=== PATIENT | male | born 1950 | race Caucasian/White ===

== ENCOUNTER → 2017-08-06 | Day surgery (SDC) | payer MEDICARE, OTHER ==
[2017-08-05 11:04] LABS: BASOPHILS # (AUTO) 0.1 (0.0-0.1); BASOPHILS % 0.9 % (0.0-1.0); EOSINOPHILS # (AUTO) 1.3 (0.0-0.4); EOSINOPHILS % 15.5 % (0.0-6.0); HEMATOCRIT 37.9 % (38.2-49.6); HEMOGLOBIN 12.5 g/dL (14.0-18.0); LYMPHOCYTES # (AUTO) 2.1 (1.0-3.2); LYMPHOCYTES % 24.6 % (18.0-39.1); MEAN CORPUSCULAR HEMOGLOBIN 31.5 pg (28-32); MEAN CORPUSCULAR VOLUME 95.5 fL (81-99); MONOCYTES # (AUTO) 1.2 (0.2-0.8); MONOCYTES % 14.1 % (4.4-11.3); NEUTROPHILS # (AUTO) 3.8 (2.1-6.9); NEUTROPHILS % 44.2 % (38.7-80.0); PLATELET COUNT 248 x10e3/uL (140-360); RED BLOOD COUNT 3.97 x10e6/uL (4.3-5.7); RED CELL DISTRIBUTION WIDTH 12.1 % (11.7-14.4)
[2017-08-05 11:19] LABS: INR 0.95; PROTHROMBIN TIME 11.9 seconds (11.9-14.5)
[2017-08-05 11:28] LABS: ALANINE AMINOTRANSFERASE 13 IU/L (0-55); ALBUMIN 3.6 g/dL (3.5-5.0); ALBUMIN/GLOBULIN RATIO 0.9 (0.8-2.0); ALKALINE PHOSPHATASE 51 IU/L (40-150); ANION GAP 12.8 mmol/L (8-16); BLOOD UREA NITROGEN 24 mg/dL (7-26); BUN/CREATININE RATIO 24 (6-25); CARBON DIOXIDE 27 mmol/L (22-29); CHLORIDE 106 mmol/L (98-107); EST GLOMERULAR FILTRATION RATE > 60 ML/MIN (60-); GLUCOSE 105 mg/dL (74-118); POTASSIUM 4.8 mmol/L (3.5-5.1); SODIUM 141 mmol/L (136-145)
[~2017-08-06] VITALS: Ht 177.8 cm; Wt 85.3 kg
[~2017-08-06] MED LIST: ASPIR 8181 MG PO; BENZOCAINE 20% SPR 60 ML CAN ONE; BUSPIRONE HCL5 MG PO; BYSTOLIC10 MG PO; CELEBREX200 MG PO; FAMOTIDINE20 MG PO; FENTANYL CITRATE/PF 100MCG/2 ML INJ ONE; FINASTERIDE5 MG PO; LEVOTHYROXINE25 MCG PO; LIDOCAINE HCL 2% LOCAL INJ 5 ML SDV VIAL INJ ONE; MELOXICAM7.5 MG PO; MIDAZOLAM HCL 2 MG/2 ML VIAL ONE; NORCO 10-325 T1 EACH PO; NORVASC10 MG PO; PROPOFOL IV EMULSION 10 MG/ML 20 ML VIAL ONE; RESTORIL15 MG PO; ROPINIROLE HC0.25 MG PO; SODIUM CHLORIDE 0.9% 500ML 500 ML ONE; TESTOSTERO100 MG/1 M IM/IV/SC; VIT B12 INJECTION IM; VITAMIN D31000 UNI1 PO
--- OUTSIDE RECORDS SUMMARY | 2017-08-06 12:49 | XMS REPORT | Clinical Summary ---
Author Author [facility] Organization [facility] Address Unknown Phone Unavailable Care Team Providers Care Supervisor Steno Pool Name Role Phone Swapnil Beavers MD PCP Allergies Active Allergy Reactions Severity Noted Date Comments Sulfamethoxazole-Trimetho 06/14/2017 prim Ciprofloxacin 06/14/2017 Atorvastatin 06/14/2017 Simvastatin 06/14/2017 Current Medications Prescription Sig. Disp. Refills Start End Date Status Date finasteride (PROSCAR) 5 Take 5 mg by mouth daily. Active mg tablet levothyroxine (SYNTHROID, Take 25 mcg by mouth Active LEVOXYL) 25 mcg tablet every morning. amLODIPine (NORVASC) 10 Take 10 mg by mouth Active mg tablet daily. temazepam (RESTORIL) 30 Take 30 mg by mouth Active mg capsule nightly as needed for sleep. HYDROcodone-acetaminophen Take 1 tablet by mouth Active (NORCO) 10-325 mg per every 6 (six) hours as tablet needed for moderate pain. nebivolol (BYSTOLIC) 10 Take 10 mg by mouth Active MG tablet daily. CHOLECALCIFEROL, VITAMIN Take 1 tablet by mouth Active D3, (VITAMIN D3 ORAL) every morning. CYANOCOBALAMIN, VITAMIN Inject as directed every Active B-12, INJ 30 (thirty) days. celecoxib (CeleBREX) 200 Take 200 mg by mouth 06/17/19 Discontin MG capsule daily. 18 ued aspirin 81 mg chewable Chew 1 tablet (81 mg 30 tablet 0 06/17/1901/25 tablet total) daily for 30 days. 18 18 famotidine (PEPCID) 20 MG Take 1 tablet (20 mg 30 tablet 0 06/17/19 07/17/19 tablet total) by mouth daily for 18 18 30 days. pravastatin (PRAVACHOL) Take 1 tablet (20 mg 30 tablet 0 06/17/19 20 MG tablet total) by mouth nightly 18 18 for 30 days. Active Problems Problem Noted Date Left hand weakness 06/14/2017 Encounters Date Type Specialty Care Team Description 06/20/2017 Emergency Emergency Medicine Pooja Silver MD Paresthesia of left arm (Primary Dx) 06/16/2017 Patient Quality Brie Aviles Outreach 06/14/2017 [facility] General Surgery Clemencia Morrow MD Left hand weakness - Encounter Lisa Choe MD (Primary Dx); 06/16/2017 Acute CVA (cerebrovascular accident) 06/14/2017 Procedure Pass General Surgery after 08/05/2016 Social History Tobacco Use Types Packs/Day Years Used Date Never Smoker Smokeless Tobacco: Never Used Alcohol Use Drinks/Week oz/Week Comments Yes occasionally Sex Assigned at Date Recorded Not on file Last Filed Vital Signs Vital Sign Reading Time Taken Blood Pressure 165/78 06/20/2017 9:32 AM CDT Pulse 72 06/20/2017 9:32 AM CDT Temperature 36.6 C (97.8 F) 06/20/2017 8:22 AM CDT Respiratory Rate 15 06/20/2017 9:32 AM CDT Oxygen Saturation 99% 06/20/2017 9:32 AM CDT Inhaled Oxygen - - Concentration Weight 85.7 kg (189 lb) 06/20/2017 8:22 AM CDT Height 177.8 cm (5' 10") 06/20/2017 8:22 AM CDT Body Mass Index 27.12 06/20/2017 8:22 AM CDT Plan of Treatment Health Maintenance Due Date Last Done Comments COLONOSCOPY 2000 SHINGRIX VACCINE (#1) 2000 ZOSTER VACCINE 2010 PNEUMOCOCCAL 07/27/2015 POLYSACCHARIDE VACCINE AGE 65 AND OVER PNEUMOCOCCAL-13 07/27/2015 INFLUENZA VACCINE 11/06/2017 Procedures Procedure Name Priority Date/Time Associated Diagnosis Comments ECHOCARDIOGRAM WITH Routine 06/15/2017 Results for this AGITATED SALINE (72374) 2:35 PM FUR CUTTER procedure are in the results section. PA CRITICAL CARE, E/M Routine 06/14/2017 Results for this 30-74 MINUTES 6:43 PM FUR CUTTER procedure are in the results section. after 08/05/2016 Results * CT Head Wo Contrast (06/20/2017 8:55 AM) Specimen Performing Laboratory [facility] [address] [place] [address] Narrative EXAMINATION:CT HEAD WO CONTRAST CT IMAGING WAS PERFORMED WITH ITERATIVE RECONSTRUCTION TECHNIQUE AND/OR AUTOMATED EXPOSURE CONTROL TO REDUCE RADIATION DOSE. CLINICAL HISTORY:left arm soreness COMPARISON:MRI brain June 14, 2017. FINDINGS: 1.Small focus of recent cortical ischemia in the precentral gyrus on the right is present although difficult to appreciate on the CT. There is no hemorrhage or mass effect. 2.There are otherwise mild nonspecific cerebral white matter microvascular changes. There is mild to moderate cerebral cortical volume loss and mild cerebellar volume loss. There is a small chronic cortical insult in the posterior superior occipital lobe.. 3. There is minimal basal ganglia calcification. Atherosclerotic calcifications noted in the distal internal carotid arteries. 4.There is minimal mucosal thickening in the ethmoid and maxillary sinuses. IMPRESSION: No significant change since June 14, 2017. [facility]-[id number] Procedure Note Hm Interface, Radiology Results Incoming - 06/20/2017 9:15 AM CDT EXAMINATION: CT HEAD WO CONTRAST CT IMAGING WAS PERFORMED WITH ITERATIVE RECONSTRUCTION TECHNIQUE AND/OR AUTOMATED EXPOSURE CONTROL TO REDUCE RADIATION DOSE. CLINICAL HISTORY: left arm soreness COMPARISON: MRI brain June 14, 2017. FINDINGS: 1. Small focus of recent cortical ischemia in the precentral gyrus on the right is present although difficult to appreciate on the CT. There is no hemorrhage or mass effect. 2. There are otherwise mild nonspecific cerebral white matter microvascular changes. There is mild to moderate cerebral cortical volume loss and mild cerebellar volume loss. There is a small chronic cortical insult in the posterior superior occipital lobe.. 3. There is minimal basal ganglia calcification. Atherosclerotic calcifications noted in the distal internal carotid arteries. 4. There is minimal mucosal thickening in the ethmoid and maxillary sinuses. IMPRESSION: No significant change since June 14, 2017. [facility]-[id number] * Estimated GFR (06/20/2017 8:38 AM) Only the most recent of 2 results within the time period is included. Component Value Ref Range GFR Non Af Amer 84 mL/min/1.73 m2 GFR Af Amer >90 mL/min/1.73 m2 Comment: Chronic kidney disease: <60 mL/min/1.73m2 Kidney failure: <15 mL/min/1.73m2 The estimated GFR is calculated from the IDMS-traceable Modification of Diet in Renal Disease Equation. The accuracy of the calculation is poor when the creatinine is normal. Calculated values >90 mL/min/1.73m2 are not reported. This equation has not been validated in children (<18 years), women, the elderly (>70 years), or ethnic groups other than Caucasians and Americans. Specimen Performing Laboratory Plasma specimen [facility] DEPARTMENT OF PATHOLOGY AND [facility]IC[facility] [address] [place] [address] [place] [address] * Troponin (06/20/2017 8:38 AM) Only the most recent of 2 results within the time period is included. Component Value Ref Range Troponin <0.300 0.000 - 0.300 ng/mL Comment: 0.30 - 1.49 ng/ml May indicate increased risk of acute coronary syndrome. >=1.5 ng/ml Consistent with acute myocardial infarction. The diagnostic value of a single normal or non-diagnostic result is questionable. Serial samples at 2-6 hour intervals are required to rule out acute myocardial injury. Specimen Performing Laboratory Plasma specimen [facility] OF PATHOLOGY AND [place] [address] [place] [address] * CBC with platelet and differential (06/20/2017 8:38 AM) Only the most recent of 2 results within the time period is included. Component Value Ref Range WBC 7.96 4.50 - 11.00 k/uL RBC 4.27 (L) 4.40 - 6.00 m/uL HGB 13.5 (L) 14.0 - 18.0 g/dL HCT 41.1 41.0 - 51.0 % MCV 96.3 82.0 - 100.0 fL MCH 31.6 27.0 - 34.0 pg MCHC 32.8 31.0 - 37.0 g/dL RDW - SD 45.2 37.0 - 55.0 fL MPV 9.9 8.8 - 13.2 fL Platelet count 242 150 - 400 k/uL Nucleated RBC 0.00 /100 WBC Neutrophils 59.0 39.0 - 69.0 % Lymphocytes 22.0 (L) 25.0 - 45.0 % Monocytes 15.1 (H) 0.0 - 10.0 % Eosinophils 2.4 0.0 - 5.0 % Basophils 0.9 0.0 - 1.0 % Immature granulocytes 0.6Comment: "Immature granulocytes" 0.0 - 1.0 % (promyelocytes, myelocytes, metamyelocytes) Specimen Performing Laboratory Blood [facility] DEPARTMENT OF PATHOLOGY AND GENOMIC MEDICINE [address] [place] [address] * Creatine kinase, total (CPK) (06/20/2017 8:38 AM) Component Value Ref Range Creatine kinase 84 39 - 308 U/L Specimen Performing Laboratory Plasma specimen [facility] DEPARTMENT OF PATHOLOGY AND GENOMIC MEDICINE [address] [place] [address] * Comprehensive metabolic panel (06/20/2017 8:38 AM) Only the most recent of 2 results within the time period is included. Component Value Ref Range Sodium 138 135 - 148 mEq/L Potassium 3.7 3.5 - 5.0 mEq/L Chloride 100 98 - 112 mEq/L CO2 27 24 - 31 mEq/L Anion gap 11 7 - 15 mEq/L Comment: Starting from July , anion gap calculation no longer incorporates potassium. Please note the change. BUN 18 8 - 23 mg/dL Creatinine 0.9 0.7 - 1.2 mg/dL Glucose 119 (H) 65 - 99 mg/dL Calcium 9.4 8.8 - 10.2 mg/dL Protein 7.5 6.3 - 8.3 g/dL Comment: [place] 4.6-7.0 g/dL 1 week 4.4-7.6 g/dL 7 months-1year 5.1-7.3 g/dL 1-2 years 5.6-7.5 g/dL >3 years 6.0-8.0 g/dL 18-150 6.3-8.3 g/dL Albumin 4.1 3.5 - 5.0 g/dL A/G ratio 1.2 0.7 - 3.8 Alkaline phosphatase 44 40 - 129 U/L AST 19 10 - 50 U/L ALT 16 5 - 50 U/L Total bilirubin 0.4 0.0 - 1.2 mg/dL Specimen Performing Laboratory Plasma specimen [facility] DEPARTMENT PATHOLOGY AND [facility] MEDICINE [address] [place] [address] * ECG 12 lead (06/20/2017 8:29 AM) Only the most recent of 2 results within the time period is included. Component Value Ref Range Ventricular rate 70 Atrial rate 70 PA interval 144 QRSD interval 82 QT interval 416 QTC interval 449 P axis 1 51 QRS axis 1 23 T wave axis 51 EKG impression Normal sinus rhythm-Normal ECG-In automated comparison with ECG of 14-JUN-2017 19:12,-No significant change was found- Specimen Performing Laboratory [facility] [place] [address] [place] [address] * ECG ED Preliminary Interpretation - NOT AN ORDER (06/20/2017 8:21 AM) Delia Tucker MD 06/20/20179:24 AM ECG ED Preliminary Interpretation - Not an Order Performed by: POOJA SILVER Authorized by: POOJA SILVER ECG reviewed by ED Physician in the absence of a chainstitch binder: yes Interpretation: Interpretation: normal Rate: ECG rate:70 ECG rate assessment: normal Rhythm: Rhythm: sinus rhythm Ectopy: Ectopy: none QRS: QRS axis:Normal Conduction: Conduction: normal ST segments: ST segments:Normal T waves: T waves: normal * Thyroid stimulating hormone (06/16/2017 5:11 AM) Component Value Ref Range TSH 2.13 0.27 - 4.20 uIU/mL Specimen Performing Laboratory Plasma specimen [facility] DEPARTMENT OF PATHOLOGY AND GENOMIC MEDICINE [address] [place] [address] * Echocardiogram complete w contrast and 3D if needed (06/15/2017 2:35 PM) Component Value Ref Range AoV Area, Vmax 2.10 cm2 AoV Area, VTI 2.24 cm2 AoV Mean PG 5.68 mmHg AoV Peak PG 10.61 mmHg AoV Vmax 1.63 m/s AoV VTI 0.33 m IVS,d 0.95 0.6 - 1.2 cm LV,d 4.20 cm LV EF,A2C 67.21 % LV EF,A4C 57.30 % LV EF,BP 62.94 % Baldo Clinton,d A2C 8.47 cm Baldo Clinton,d A4C 8.33 cm Baldo Clinton,s A2C 6.92 cm Baldo Clinton,s A4C 7.04 cm LV,s 2.96 cm LV SV,A2C 75.65 % LV SV,A4C 65.46 % LV Vol,d A2C 112.56 mL LV Vol,d A4C 114.24 ml LV Vol,d BP 114.27 ml LV Vol,s A2C 36.91 mL LV Vol,s A4C 48.78 ml LV Vol,s BP 42.34 nl LVOT Diam,S 2.04 cm LVOT Vmax 1.05 m/s LVOT VTI 0.22 m LVPWD,d 1.13 cm TR Vpeak 2.62 mm/s MV E A ratio 1.28 mmHg TR pk grad 27.56 mmHg MR Vmax 5.47 m/s MR peak grad 119.54 mmHg E wave decelartion time 212.42 msec MV Peak A Raheem 0.94 m/s MV valve area p 1/2 3.21 cm2 method MV Peak E Raheem 1.20 m/s MV stenosis pressure 1/2 68.55 ms time AV LVOT peak gradient 4.41 mmHg LV SYS VOL 33.82 ml LV AMARAL VOL 78.67 ml LV SV Teich 2D 44.85 ml LVOT SI 36.18 ml/m2 AoV Cusp sep 1.64 AoV Vmn 1.14 IVS s 2D 1.35 LA Ao Ratio Mmode 1.20 LVOT Vmn 0.73 Pt Size 177.80 Pt Wt 83.91 PV AT 138.41 msec LVOT mean grad 2.30 mmHg LVPW s PLAX 1.41 cm MV Decel slope 5.63 m/s2 Velocity Ratio (V1/V2) 0.64 m/s EF 57.01 % E/A ratio 1.28 LVOT area 3.27 cm2 LA volume 60.0 cm3 LA Area d A4C 58 cm2 RA pressure 5.00 mmHg RVSP 32.56 mmHg LA diam s 4.20 cm Aortic Root 3.50 cm D E excurs 1.90 E f slope 0.07 E prime lat 0.14 E tere sept 0.06 PV acc T slope 4.90 Specimen Performing Laboratory [facility] [address] [place] [address] Narrative The left ventricle chamber size is normal. There is borderline left ventricular Left Ventricular ejection fraction is 55 - 60%. Right ventricular size is normal. No pericardial effusion LA size is normal. No PFO by saline contrast study * Homocystine, plasma (06/15/2017 11:25 AM) Component Value Ref Range Homocysteine 12.7 0.0 - 15.0 umol/L Comment: The risk for coronary vascular disease increases progressively with homocysteine concentration. A 3.4 times greater risk is associated with a homocysteine concentration of greater than 15.8 umol/L as compared to a concentration below 14.1 umol/L. Specimen Performing Laboratory Plasma specimen [facility] DEPARTMENT OF PATHOLOGY AND GENOMIC MEDICINE [address] [facility] [place] [place] [address] * Vitamin B12 level (06/15/2017 11:25 AM) Component Value Ref Range Vitamin B12 516 211 - 946 pg/mL Comment: Significant overlap exists between normal and deficiency states. However, most patients with deficiencies will have Serum B12 <200 pg/mL. Specimen Performing Laboratory Serum [facility] PATHOLOGY AND GENOMIC MEDICINE [address] [place] [address] * Lipid panel (06/15/2017 11:25 AM) Only the most recent of 2 results within the time period is included. Component Value Ref Range Cholesterol 228 (H) <200 mg/dL Triglycerides 138 <150 mg/dL HDL cholesterol 55 >40 mg/dL LDL cholesterol 171 (H)Comment: Result obtained by direct LDL <100 mg/dL measurement Lipid panel SeeBelow interpretation Comment: Total Cholesterol (mg/dL) <200 Desirable 200-239 Borderline-high >=240 High Triglycerides (mg/dL) <150 Normal 150-199 Borderline-high 200-499 High >=500 Very high HDL Cholesterol (mg/dL) <40 Low (male) <40 Low (female) LDL Cholesterol (mg/dL) <100 Optimal 100-129 Near or above optimal 130-159 Borderline-high 160-189 High >=190 Very high Risk Catergories that modify LDL goals. Risk Catergories LDL goal (mg/dL) CHD and CHD risk equivalent <100 (10-year risk >20%) Multiple (2+) risk factors <130 (10-year risk=<20%) 0-1 risk factors <160 (<10-year risk) Defining levels of lipids in metabolic syndrome Triglycerides >=150 mg/dL HDL Cholesterol Men <40 mg/dL Women <40 mg/dL Non-HDL cholesterol is a second target for therapy in persons with high triglycerides (>=200 mg/dL) Specimen Performing Laboratory Plasma specimen [facility] DEPARTMENT OF PATHOLOGY AND GENOMIC MEDICINE [address] [place] [address] * Serum electrophoresis (06/15/2017 10:25 AM) Component Value Ref Range Protein 6.4 6.3 - 8.3 g/dL Comment: [place] 4.6-7.0 g/dL 1 week 4.4-7.6 g/dL 7 months-1year 5.1-7.3 g/dL 1-2 years 5.6-7.5 g/dL >3 years 6.0-8.0 g/dL 18-150 6.3-8.3 g/dL SPE albumin 4.40 4.00 - 5.30 g/dL SPE alpha 1 0.13 0.10 - 0.25 g/dL SPE alpha 2 0.70 0.58 - 0.84 g/dL SPE beta 0.77 0.50 - 1.10 g/dL SPE gamma 0.40 (L) 0.60 - 1.30 g/dL SPE extended See CommentComment: Gamma globulins are slightly interpretation decreased. SPE interpretation See CommentComment: Jose Macias, PhD; Haroldo Dow, PhD; Joaquin Maxwell MD, PhD Specimen Performing Laboratory Serum [facility] DEPARTMENT OF PATHOLOGY AND GENOMIC MEDICINE [address] [place] [address] * MRI Brain Wo Contrast (06/14/2017 10:33 PM) Specimen Performing Laboratory [address] [address] Narrative EXAMINATION: MRI BRAIN WO CONTRAST CLINICAL HISTORY: STROKE COMPARISON:CT head same date TECHNIQUE: Multiplanar and multisequence MRI imaging of the brain was obtained without contrast. FINDINGS: Small areas of cortical restricted diffusion involving the right precentral gyrus. Focal area of gliosis with hemosiderin deposition involving the right parasagittal parietal occipital region. Increased signal on DWI trace images is suspected to be related to susceptibility artifact. Scattered subcortical and periventricular white matter T2 FLAIR hyperintensities likely reflecting mild chronic bibasilar ischemic changes. Major intracranial vascular flow voids appear preserved. The ventricles are normal in size and configuration for age with evidence of mild to moderate global cerebral volume loss. Orbits are normal in appearance. Visualized paranasal sinuses and mastoid air cells are clear. IMPRESSION: 1. Small areas of recent ischemia involving the right precentral gyrus. No evidence of mass effect or acute hemorrhage. 2. Suspected small chronic hemorrhagic insult involving the right parasagittal parietal occipital region. Findings were discussed with and acknowledged by YUKO Barrera at 06/14/2017 11:00 PM. [id number] Procedure Note Interface, Radiology Results Incoming - 06/14/2017 11:06 PM FUR CUTTER EXAMINATION: MRI BRAIN WO CONTRAST CLINICAL HISTORY: STROKE COMPARISON: CT head same date TECHNIQUE: Multiplanar and multisequence MRI imaging of the brain was obtained without contrast. FINDINGS: Small areas of cortical restricted diffusion involving the right precentral gyrus. Focal area of gliosis with hemosiderin deposition involving the right parasagittal parietal occipital region. Increased signal on DWI trace images is suspected to be related to susceptibility artifact. Scattered subcortical and periventricular white matter T2 FLAIR hyperintensities likely reflecting mild chronic bibasilar ischemic changes. Major intracranial vascular flow voids appear preserved. The ventricles are normal in size and configuration for age with evidence of mild to moderate global cerebral volume loss. Orbits are normal in appearance. Visualized paranasal sinuses and mastoid air cells are clear. IMPRESSION: 1. Small areas of recent ischemia involving the right precentral gyrus. No evidence of mass effect or acute hemorrhage. 2. Suspected small chronic hemorrhagic insult involving the right parasagittal parietal occipital region. Findings were discussed with and acknowledged by YUKO Barrera at 06/14/2017 11:00 PM. [id number] * Urinalysis screen and microscopy, with reflex to culture (06/14/2017 8:00 PM) Component Value Ref Range Specimen site Clean catch Color, UA Straw Appearance, UA Clear Specific gravity, UA 1.055 (H) 1.001 - 1.035 pH, UA 5.0 5.0 - 8.5 Protein, UA Negative Negative Glucose, UA 1+ (A) Negative Ketones, UA Trace (A) Negative Bilirubin, UA Negative Negative Blood, UA Negative Negative Nitrite, UA Negative Negative Urobilinogen, UA Negative <2.0 Leukocyte esterase, UA Negative Negative Epithelial cells, UA Few /HPF WBC, UA 0-5 0 - 1 /HPF RBC, UA 0-5 0 - 1 /HPF Bacteria, UA None seen None seen Yeast, UA None seen Yeast with pseudohyphae, None seen UA Specimen Performing Laboratory Urine [facility] DEPARTMENT OF PATHOLOGY AND GENOMIC MEDICINE [address] [place] [address] * Urine culture (06/14/2017 8:00 PM) Component Value Ref Range Urine culture SEE COMMENTComment: Bacteriuria screen negative. Specimen Performing Laboratory Urine [facility] DEPARTMENT OF PATHOLOGY AND GENOMIC MEDICINE [address] [place] [address] * POC glucose (06/14/2017 7:23 PM) Component Value Ref Range POC glucose 100 (H) 65 - 99 mg/dL Comment: Meter ID: [id number] Paper Wood Cutter: Radha Howell Specimen Performing Laboratory [facility] DEPARTMENT OF PATHOLOGY AND GENOMIC MEDICINE [address] [place] [address] * CTA Neck W Wo Contrast (06/14/2017 7:20 PM) Specimen Performing Laboratory [facility] [address] [place] [address] Narrative EXAMINATION:CT ANGIOGRAM NECK W WO CONTRAST CLINICAL HISTORY:STROKE COMPARISON:None. TECHNIQUE: Neck CTA with multi-planar MIP and volumetric rendering (3D) after bolus intravenous iodinated contrast administration was performed. All CT images were acquired using low-dose technique with automated exposure control. FINDINGS: Normal branching anatomy of the aortic arch. No atherosclerosis or narrowing of the aortic arch or branch vessels. Mild narrowing of the left common carotid artery secondary to noncalcified plaque measuring up to 25% according to NASCET criteria. Mild calcified arteriosclerosis of the aortic arch. Partially calcified arteriosclerosis of the carotid bifurcations without significant stenosis (less than 25%). The bilateral vertebral arterial systems appear widely patent. Slight dominance of the left vertebral artery No evidence of dissection or aneurysm. IMPRESSION: Arteriosclerosis of the aortic arch and bilateral cervical carotid arterial systems. No hemodynamically significant stenosis according to NASCET criteria. Somewhat prominent noncalcified plaque of the left common carotid artery with approximately 25% narrowing. [id number] Procedure Note Interface, Radiology Results Incoming - 06/14/2017 7:38 PM FUR CUTTER EXAMINATION: CT ANGIOGRAM NECK W WO CONTRAST CLINICAL HISTORY: STROKE COMPARISON: None. TECHNIQUE: Neck CTA with multi-planar MIP and volumetric rendering (3D) after bolus intravenous iodinated contrast administration was performed. All CT images were acquired using low-dose technique with automated exposure control. FINDINGS: Normal branching anatomy of the aortic arch. No atherosclerosis or narrowing of the aortic arch or branch vessels. Mild narrowing of the left common carotid artery secondary to noncalcified plaque measuring up to 25% according to NASCET criteria. Mild calcified arteriosclerosis of the aortic arch. Partially calcified arteriosclerosis of the carotid bifurcations without significant stenosis (less than 25%). The bilateral vertebral arterial systems appear widely patent. Slight dominance of the left vertebral artery No evidence of dissection or aneurysm. IMPRESSION: Arteriosclerosis of the aortic arch and bilateral cervical carotid arterial systems. No hemodynamically significant stenosis according to NASCET criteria. Somewhat prominent noncalcified plaque of the left common carotid artery with approximately 25% narrowing. [id number] * CTA Head W Wo Contrast (06/14/2017 7:20 PM) Specimen Performing Laboratory [facility] [address] [place] [address] Narrative EXAMINATION:CT ANGIOGRAM HEAD W WO CONTRAST CLINICAL HISTORY:STROKE COMPARISON:Head CT on 06/14/2017. TECHNIQUE: Head CTA with multiplanar MIP and volumetric rendering after bolus intravenous iodinated contrast administration performed using radiation dose reduction techniques.Technical factors are evaluated and adjusted to ensure appropriate moderation of exposure.Automated dose management technology is applied to adjust radiation exposure while achieving a diagnostic quality image. FINDINGS: There is vascular calcification along bilateral cavernous supraclinoid ICAs with mild stenosis of the left cavernous-supraclinoid ICA. There is normal variant anatomy of the right ICA-MCA junction with early trifurcation of the right MCA. There is no significant stenosis or occlusion along bilateral ACAs and MCAs. The right A1 AVERY is dominant. The anterior communicating artery complex is unremarkable. The left vertebral artery is dominant. There is focal vascular calcification along the proximal right intradural vertebral artery with at most mild stenosis. There is no significant stenosis along the basilar artery, cerebellar arteries, and revenue field auditor. The right [employer] S[employer] CAREGIVER is -type with origin from prominent right posterior communicating artery. There is a left posterior communicating artery is unremarkable. There is no evidence of cerebral aneurysm in the proximal [place]. There is no evidence of perfusion-weighted defect on CTA source images. IMPRESSION: 1. 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 2. Focal vascular calcification with at most mild stenosis of proximal right intradural vertebral artery. 3. Normal variant [place] anatomy as described. 4. No evidence of perfusion-weighted defect on CTA source images. [facility] [id number] Procedure Note Interface, Radiology Results Incoming - 06/14/2017 7:49 PM FUR CUTTER EXAMINATION: CT ANGIOGRAM HEAD W WO CONTRAST CLINICAL HISTORY: STROKE COMPARISON: Head CT on 06/14/2017. TECHNIQUE: Head CTA with multiplanar MIP and volumetric rendering after bolus intravenous iodinated contrast administration performed using radiation dose reduction techniques. Technical factors are evaluated and adjusted to ensure appropriate moderation of exposure. Automated dose management technology is applied to adjust radiation exposure while achieving a diagnostic quality image. FINDINGS: There is vascular calcification along bilateral cavernous supraclinoid ICAs with mild stenosis of the left cavernous-supraclinoid ICA. There is normal variant anatomy of the right ICA-MCA junction with early trifurcation of the right MCA. There is no significant stenosis or occlusion along bilateral ACAs and MCAs. The right A1 AVERY is dominant. The anterior communicating artery complex is unremarkable. The left vertebral artery is dominant. There is focal vascular calcification along the proximal right intradural vertebral artery with at most mild stenosis. There is no significant stenosis along the basilar artery, cerebellar arteries, and revenue field auditor. The right [employer] is -type with origin from prominent right posterior communicating artery. There is a left posterior communicating artery is unremarkable. There is no evidence of cerebral aneurysm in the proximal [place]. There is no evidence of perfusion-weighted defect on CTA source images. IMPRESSION: 1. 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 2. Focal vascular calcification with at most mild stenosis of proximal right intradural vertebral artery. 3. Normal variant [place] anatomy as described. 4. No evidence of perfusion-weighted defect on CTA source images. [id number] * CT Stroke Brain Wo Contrast (06/14/2017 7:03 PM) Specimen Performing Laboratory [facility] [address] [place] [address] Narrative EXAMINATION: CT STROKE BRAIN WO CONTRAST CLINICAL HISTORY: STROKE COMPARISON:None. TECHNIQUE: Noncontrast enhanced images of the brain were obtained from the skull base to the vertex. Both soft tissue and bone reconstruction algorithms were performed. CT scans are performed using radiation dose reduction techniques (iterative reconstruction and/or automated exposure control). Technical factors are evaluated and adjusted to ensure appropriate moderation of exposure. Automated dose management technology is applied to adjust radiation exposure while achieving a diagnostic quality image. FINDINGS: Mild generalized brain parenchymal volume loss. Nonspecific hypoattenuation of the supratentorial white matter, likely chronic microangiopathic changes. Mild cerebrovascular calcifications. The brain parenchyma is otherwise unremarkable. The jara-white matter differentiation is preserved. No evidence of acute intra or extra-axial hemorrhage, mass, mass effect or acute territorial infarction. There is no acute hydrocephalus. Basal cisterns are patent. No acute soft tissue hematoma or laceration. No skull fractures or aggressive bony lesions. Paranasal sinuses and mastoid air cells are clear. Orbits are normal. IMPRESSION: Involutional changes as detailed above with no acute intracranial abnormality. Findings discussed with CLEMENCIA MORROW at 06/14/2017 7:09 PM, with acknowledgement of understanding. 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 TECHNIQUE: Noncontrast enhanced images of the brain were obtained from the skull base to the vertex. Both soft tissue and bone reconstruction algorithms were performed. CT scans are performed using radiation dose reduction techniques (iterative reconstruction and/or automated exposure control). Technical factors are evaluated and adjusted to ensure appropriate moderation of exposure. Automated dose management technology is applied to adjust radiation exposure while achieving a diagnostic quality image. FINDINGS: Mild generalized brain parenchymal volume loss. Nonspecific hypoattenuation of the supratentorial white matter, likely chronic microangiopathic changes. Mild cerebrovascular calcifications. The brain parenchyma is otherwise unremarkable. The jara-white matter differentiation is preserved. No evidence of acute intra or extra-axial hemorrhage, mass, mass effect or acute territorial infarction. There is no acute hydrocephalus. Basal cisterns are patent. No acute soft tissue hematoma or laceration. No skull fractures or aggressive bony lesions. Paranasal sinuses and mastoid air cells are clear. Orbits are normal. IMPRESSION: Involutional changes as detailed above with no acute intracranial abnormality. Findings discussed with CLEMENCIA MORROW at 06/14/2017 7:09 PM, with acknowledgement of understanding. [id number] * Partial thromboplastin time, activated (06/14/2017 6:57 PM) Component Value Ref Range PTT 23.0 23.0 - 36.0 sec Comment: PTT therapeutic range for unfractionated heparin is 61.0-112.0 seconds which corresponds to Anti-Xa 0.3-0.7 U/ml. Specimen Performing Laboratory Blood [facility] DEPARTMENT OF PATHOLOGY AND GENOMIC MEDICINE [address] [place] [address] * Prothrombin time with INR (06/14/2017 6:57 PM) Component Value Ref Range Prothrombin time 12.2 12.0 - 15.0 sec INR 0.9 Comment: The International Normalized Ratio (INR) is a therapeutic monitoring tool for patients who are stable on oral anticoagulant therapy. An INR of 2.0-3.0 is suggested for deep vein thrombosis/pulmonary embolism. Specimen Performing Laboratory Blood [facility] DEPARTMENT OF PATHOLOGY AND GENOMIC MEDICINE [address] [place] [address] * CRITICAL CARE (06/14/2017 6:43 PM) Narrative Clemencia Morrow MD 06/14/20177:16 PM Critical Care Performed by: CLEMENCIA MORROW Authorized by: CLEMENCIA MORROW Critical care provider statement: Critical care time (minutes):35 Critical care start time:06/14/2017 7:10 PM Critical care time was exclusive of:Separately billable procedures and treating other patients Critical care was necessary to treat or prevent imminent or life-threatening deterioration of the following conditions:Circulatory failure Critical care was time spent personally by me on the following activities:Blood draw for specimens, development of treatment plan with patient or surrogate, discussions with consultants, discussions with primary provider, evaluation of patient's response to treatment, examination of patient, ordering and performing treatments and interventions, ordering and review of laboratory studies, ordering and review of radiographic studies, pulse oximetry, re-evaluation of patient's condition and review of old charts after 08/05/2016 Insurance Payer Benefit Subscriber ID Type Phone Address Plan / Group MEDICARE MEDICARE xxxxxxxxxx Medicare [place], [place] PART A AND B [facility] xxxxxxxxx [facility] INDEMNITY
[2017-08-06 14:15] VITALS: BP 151/78
--- NOTE | 2017-08-06 16:30 | Operative Report ---
DATE OF PROCEDURE: August 06, 2017 INDICATIONS: Palpitations and atrial fibrillation. PROCEDURES PERFORMED: Insertable loop recorder. Left anterior chest was anesthetized using subcutaneous lidocaine. A 2heuresavant LINQ, serial number [id number], was inserted without complications. Skin approximated using Dermabond. Patient discharged home the same day. Job#: [id number]
== END ==
LOC: CATH LAB 12:47
PROVIDERS: ATTEND Internal Medicine Interventional Cardiology
DX: I48.91 Unspecified atrial fibrillation (principal); I51.3 Intracardiac thrombosis, not elsewhere classified; I10 Essential (primary) hypertension; R07.9 Chest pain, unspecified; Z86.73 Personal history of transient ischemic attack (TIA), and cerebral infarction without residual deficits; Z79.82 Long term (current) use of aspirin; Z88.1 Allergy status to other antibiotic agents; Z88.8 Allergy status to other drugs, medicaments and biological substances
CPT/HCPCS: 33282; 36415; 80053; 85025; 85610; 93312; 93320; 93325; J2001; J2250; J7040

== ENCOUNTER → 2018-05-02 | Day surgery (SDC) | payer MEDICARE, OTHER ==
[2018-04-29 12:12] LABS: BASOPHILS % 0.2 % (0.0-1.0); EOSINOPHILS % 0.1 % (0.0-6.0); HEMATOCRIT 43.5 % (38.2-49.6); HEMOGLOBIN 14.5 g/dL (14.0-18.0); LYMPHOCYTES # (AUTO) 1.5 (1.0-3.2); MEAN CORPUSCULAR HEMOGLOBIN 31.4 pg (28-32); MEAN CORPUSCULAR HGB CONC 33.3 g/dL (31-35); MEAN CORPUSCULAR VOLUME 94.2 fL (81-99); MONOCYTES # (AUTO) 2.5 (0.2-0.8); MONOCYTES % 14.8 % (4.4-11.3); NEUTROPHILS # (AUTO) 12.8 (2.1-6.9); NEUTROPHILS % 75.2 % (38.7-80.0); PLATELET COUNT 261 x10e3/uL (140-360); RED BLOOD COUNT 4.62 x10e6/uL (4.3-5.7); RED CELL DISTRIBUTION WIDTH 13.4 % (11.7-14.4)
[2018-04-29 13:09] LABS: LYMPHOCYTES % (MANUAL) 4 % (19-48); MONOCYTES % (MANUAL) 10 % (3.4-9.0); NEUTROPHILS % (MANUAL) 84 % (40-74)
[2018-04-29 14:05] LABS: PLATELET ESTIMATE ADEQUATE; PLATELET MORPHOLOGY COMMENT NORMAL; RBC MORPHOLOGY COMMENT NORMAL
[~2018-05-02] MED LIST changes: -BENZOCAINE 20% SPR 60 ML CAN ONE; +CRESTOR10 MG PO; +DECADRON INJ; +DEPOMEDROL INJ; +DEXILANT60 MG PO; +GLUCAGON FOR INJ 1 MG VIAL ONE; +HYOSCYAMINE SULFATE 0.5 MG/ML INJ ONE; -LIDOCAINE HCL 2% LOCAL INJ 5 ML SDV VIAL INJ ONE; +NORVASC5 MG PO; -PROPOFOL IV EMULSION 10 MG/ML 20 ML VIAL ONE; +PROPOFOL IV EMULSION 10 MG/ML 50 ML VIAL ONE; -SODIUM CHLORIDE 0.9% 500ML 500 ML ONE; +SYNTHROID50 MCG PO; +TESTOSTERO100 MG/1 M INJ; +VIT B12 INJ
--- OUTSIDE RECORDS SUMMARY | 2018-05-02 15:14 | XMS REPORT | Clinical Summary ---
Author Author [facility] Address Unknown Phone Unavailable Care Team Providers Care Wheel Molder Name Role Phone Juanpablo Beavers MD PCP Allergies Comments Active Allergy Reactions Severity Noted Date Sulfamethoxazole-Trimetho 06/14/2017 prim Ciprofloxacin 06/14/2017 Atorvastatin 06/14/2017 Simvastatin 06/14/2017 Medications End Date Status Medication Sig Dispensed Refills Start Date Active finasteride (PROSCAR) 5 Take 5 mg by 0 mg tablet mouth daily. Active levothyroxine (SYNTHROID, Take 25 mcg 0 LEVOXYL) 25 mcg tablet by mouth every morning. Active amLODIPine (NORVASC) 10 Take 10 mg by 0 mg tablet mouth daily. Active temazepam (RESTORIL) 30 Take 30 mg by 0 mg capsule mouth nightly as needed for sleep. Active HYDROcodone-acetaminophen Take 1 tablet 0 (NORCO) 10-325 mg per by mouth tablet every 6 (six) hours as needed for moderate pain. Active nebivolol (BYSTOLIC) 10 Take 10 mg by 0 MG tablet mouth daily. Active CHOLECALCIFEROL, VITAMIN Take 1 tablet 0 D3, (VITAMIN D3 ORAL) by mouth every morning. Active CYANOCOBALAMIN, VITAMIN Inject as 0 B-12, INJ directed every 30 (thirty) days. 06/16/2017 Discontinued celecoxib (CeleBREX) 200 Take 200 mg 0 MG capsule by mouth daily. 07/16/2017 aspirin 81 mg chewable Chew 1 tablet 30 tablet 0 tablet (81 mg total) 8 daily for 30 days. 07/16/2017 famotidine (PEPCID) 20 MG Take 1 tablet 30 tablet 0 tablet (20 mg total) 8 by mouth daily for 30 days. 07/16/2017 pravastatin (PRAVACHOL) Take 1 tablet 30 tablet 0 20 MG tablet (20 mg total) 8 by mouth nightly for 30 days. Active Problems Problem Noted Date Left hand weakness 06/14/2017 Encounters Care Team Description Date Type Specialty Pooja Silver MD Paresthesia of left arm (Primary Dx) 06/20/2017 Emergency Emergency Medicine StefanJenniferBrie R 06/16/2017 Patient Quality Outreach Clemencia Morrow MD Al-Lahiq, Maha, MD Left hand weakness (Primary Dx); Acute CVA (cerebrovascular accident) 06/14/2017 [facility] General Surgery - Encounter 06/16/2017 after 05/01/2017 Social History Date Tobacco Use Types Packs/Day Years Used Never Smoker Smokeless Tobacco: Never Used Alcohol Use Drinks/Week oz/Week Comments Yes occasionally Sex Assigned at Date Recorded Not on file Industry Job Start Date Occupation Not on file Not on file Not on file Travel End Travel History Travel Start No recent travel history available. Last Filed Vital Signs Time Taken Vital Sign Reading 06/20/2017 9:32 AM CDT Blood Pressure 165/78 06/20/2017 9:32 AM CDT Pulse 72 06/20/2017 8:22 AM CDT Temperature 36.6 C (97.8 F) 06/20/2017 9:32 AM CDT Respiratory Rate 15 06/20/2017 9:32 AM CDT Oxygen Saturation 99% - Inhaled Oxygen - Concentration 06/20/2017 8:22 AM CDT Weight 85.7 kg (189 lb) 06/20/2017 8:22 AM CDT Height 177.8 cm (5' 10") 06/20/2017 8:22 AM CDT Body Mass Index 27.12 Plan of Treatment Health Maintenance Due Date Last Done Comments COLON CANCER SCREENING 2000 SHINGLES VACCINES (1 of 2000 2) PNEUMOCOCCAL 07/27/2015 POLYSACCHARIDE VACCINE AGE 65 AND OVER PNEUMOCOCCAL-13 07/27/2015 INFLUENZA VACCINE 11/06/2017 Procedures Comments Procedure Name Priority Date/Time Associated Diagnosis CT HEAD WO CONTRAST STAT 06/20/2017 8:55 AM CDT ZZESTIMATED GFR STAT 06/20/2017 8:38 AM CDT TROPONIN STAT 06/20/2017 8:38 AM CDT CREATINE KINASE, TOTAL STAT 06/20/2017 (CPK) 8:38 AM CDT COMPREHENSIVE METABOLIC STAT 06/20/2017 PANEL 8:38 AM CDT HC COMPLETE BLD COUNT STAT 06/20/2017 W/AUTO DIFF 8:38 AM CDT ECG 12-LEAD Routine 06/20/2017 8:29 AM CDT ECG ED PRELIMINARY Routine 06/20/2017 INTERPRETATION 8:21 AM CDT THYROID STIMULATING Routine 06/16/2017 HORMONE 5:11 AM CDT ECHOCARDIOGRAM WITH Routine 06/15/2017 AGITATED SALINE (41436) 2:35 PM MECHANICAL SYSTEMS DESIGNER VITAMIN B12 LEVEL Routine 06/15/2017 11:25 AM MECHANICAL SYSTEMS DESIGNER HOMOCYSTINE, PLASMA Routine 06/15/2017 11:25 AM MECHANICAL SYSTEMS DESIGNER LIPID PANEL Routine 06/15/2017 11:25 AM MECHANICAL SYSTEMS DESIGNER SERUM ELECTROPHORESIS Routine 06/15/2017 10:25 AM MECHANICAL SYSTEMS DESIGNER MRI BRAIN WO CONTRAST Routine 06/14/2017 10:33 PM MECHANICAL SYSTEMS DESIGNER URINALYSIS SCREEN AND STAT 06/14/2017 MICROSCOPY, WITH REFLEX 8:00 PM MECHANICAL SYSTEMS DESIGNER TO CULTURE URINE CULTURE STAT 06/14/2017 8:00 PM MECHANICAL SYSTEMS DESIGNER POC GLUCOSE Routine 06/14/2017 7:23 PM [address] [address] ANGIOGRAM NECK W WO STAT 06/14/2017 CONTRAST 7:20 PM ME[employer]ANICAL SYSTEMS [employer]ER CT ANGIOGRAM HEAD W WO STAT 06/14/2017 CONTRAST 7:20 PM MECHANICAL SYSTEMS DESIGNER ECG 12-LEAD STAT 06/14/2017 7:12 PM [employer]ICAL SYSTEM[employer] CT STROKE BRAIN WO STAT 06/14/2017 CONTRAST 7:03 PM MECHANICAL SYSTEMS DESIGNER LIPID PANEL STAT 06/14/2017 6:57 PM MECHANICAL SYSTEMS DESIGNER ZZESTIMATED GFR STAT 06/14/2017 6:57 PM MECHANICAL SYSTEMS DESIGNER TROPONIN STAT 06/14/2017 6:57 PM MECHANICAL SYSTEMS DESIGNER COMPREHENSIVE METABOLIC STAT 06/14/2017 PANEL 6:57 PM MECHANICAL SYSTEMS DESIGNER PROTHROMBIN TIME WITH INR STAT 06/14/2017 6:57 PM MECHANICAL SYSTEMS DESIGNER PARTIAL THROMBOPLASTIN STAT 06/14/2017 TIME (PTT) 6:57 PM MECHANICAL SYSTEMS DESIGNER HC COMPLETE BLD COUNT STAT 06/14/2017 W/AUTO DIFF 6:57 PM MECHANICAL SYSTEMS DESIGNER MD CRITICAL CARE, E/M Routine 06/14/2017 30-74 MINUTES 6:43 PM MECHANICAL SYSTEMS DESIGNER after 05/01/2017 Results * CT Head Wo Contrast (06/20/2017 8:55 AM CDT) Narrative Performed At EXAMINATION:CT HEAD WO CONTRAST RADIANT CT IMAGING WAS PERFORMED WITH ITERATIVE RECONSTRUCTION [...] No significant change since June 14, 2017. [facility]-[id number] Procedure Note Hm Interface, Radiology Results Incoming [...] No significant change since June 14, 2017. [facility]-[id number] Performing Organization Address City/State/Zipcode Phone Number [facility] [address] [place] [address] * Estimated GFR (06/20/2017 8:38 AM CDT) Only the most recent of 2 results within the time period is included. GFR Non Af Amer 84 mL/min/1.73 m2 [facility] DEPARTMENT OF PATHOLOGY AND GENOMIC MEDICINE GFR Af Amer >90 mL/min/1.73 m2 [facility] DEPARTMENT OF Comment: PATHOLOGY AND Chronic kidney disease: <60 GENOMIC MEDICINE mL/min/1.73m2 Kidney failure: <15 mL/min/1.73m2 The estimated GFR is calculated from the IDMS-traceable Modification of Diet in Renal Disease Equation. The accuracy of the calculation is poor when the creatinine is normal. Calculated values >90 mL/min/1.73m2 are not reported. This equation has not been validated in children (<18 years), women, the elderly (>70 years), or ethnic groups other than Caucasians and Americans. Specimen Plasma specimen Performing Organization Address [facility] Phone Number [address] [place] [address] PATHOLOGY AND GENOMIC MEDICINE * Troponin (06/20/2017 8:38 AM CDT) Only the most recent of 2 results within the time period is included. Troponin <0.300 0.000 - 0.300 ng/mL [facility] DEPARTMENT OF Comment: PATHOLOGY AND 0.30 - 1.49 GENOMIC MEDICINE ng/mlMay indicate increased risk of acute coronary syndrome. >=1.5 ng/ml Consistent with acute myocardial infarction. The diagnostic value of a single normal or non-diagnostic result is questionable.Serial samples at 2-6 hour intervals are required to rule out acute myocardial injury. Specimen Plasma specimen Performing Organization Address [facility]/State/Zipcode Phone Number [facility] [place] [id number] [place] [address] [place] [address] PATHOLOGY AND GENOMIC MEDICINE * CBC with platelet and differential (06/20/2017 8:38 AM CDT) Only the most recent of 2 results within the time period is included. WBC 7.96 4.50 - 11.00 k/uL [facility] DEPARTMENT OF PATHOLOGY AND GENOMIC MEDICINE RBC 4.27 (L) 4.40 - 6.00 m/uL [facility] DEPARTMENT OF PATHOLOGY AND GENOMIC MEDICINE HGB 13.5 (L) 14.0 - 18.0 g/dL [facility] DEPARTMENT OF PATHOLOGY AND GENOMIC MEDICINE HCT 41.1 41.0 - 51.0 % [facility] DEPARTMENT OF PATHOLOGY AND GENOMIC MEDICINE MCV 96.3 82.0 - 100.0 fL [facility] DEPARTMENT OF PATHOLOGY AND GENOMIC MEDICINE MCH 31.6 27.0 - 34.0 pg [facility] DEPARTMENT OF PATHOLOGY AND GENOMIC MEDICINE MCHC 32.8 31.0 - 37.0 g/dL [facility] DEPARTMENT OF PATHOLOGY AND GENOMIC MEDICINE RDW - SD 45.2 37.0 - 55.0 fL [facility] DEPARTMENT OF PATHOLOGY AND GENOMIC MEDICINE MPV 9.9 8.8 - 13.2 fL [facility] DEPARTMENT OF PATHOLOGY AND GENOMIC MEDICINE Platelet count 242 150 - 400 k/uL [facility] DEPARTMENT OF PATHOLOGY AND GENOMIC MEDICINE Nucleated RBC 0.00 /100 WBC [facility] DEPARTMENT OF PATHOLOGY AND GENOMIC MEDICINE Neutrophils 59.0 39.0 - 69.0 % [facility] DEPARTMENT OF PATHOLOGY AND GENOMIC MEDICINE Lymphocytes 22.0 (L) 25.0 - 45.0 % [facility] DEPARTMENT OF PATHOLOGY AND GENOMIC MEDICINE Monocytes 15.1 (H) 0.0 - 10.0 % [facility] DEPARTMENT OF PATHOLOGY AND GENOMIC MEDICINE Eosinophils 2.4 0.0 - 5.0 % [facility] DEPARTMENT OF PATHOLOGY AND GENOMIC MEDICINE Basophils 0.9 0.0 - 1.0 % [facility] DEPARTMENT OF PATHOLOGY AND GENOMIC MEDICINE Immature granulocytes 0.6Comment: "Immature 0.0 - 1.0 % [facility] DEPARTMENT OF granulocytes" (promyelocytes, PATHOLOGY AND myelocytes, metamyelocytes) [facility] Specimen Blood Performing Organization Address City/State/Zipcode Phone Number [facility] [place] [address] [place] [address] PATHOLOGY AND GENOMIC MEDICINE * Creatine kinase, total (CPK) (06/20/2017 8:38 AM CDT) Creatine kinase 84 39 - 308 U/L [facility] DEPARTMENT OF PATHOLOGY AND GENOMIC MEDICINE Specimen Plasma specimen Performing Organization Address City/State/Zipcode Phone Number [facility] [place] [address] [place] [address] PATHOLOGY AND GENOMIC MEDICINE * Comprehensive metabolic panel (06/20/2017 8:38 AM CDT) Only the most recent of 2 results within the time period is included. Sodium 138 135 - 148 mEq/L [facility] DEPARTMENT OF PATHOLOGY AND GENOMIC MEDICINE Potassium 3.7 3.5 - 5.0 mEq/L [facility] DEPARTMENT OF PATHOLOGY AND GENOMIC MEDICINE Chloride 100 98 - 112 mEq/L [facility] DEPARTMENT OF PATHOLOGY AND GENOMIC MEDICINE CO2 27 24 - 31 mEq/L [facility] DEPARTMENT OF PATHOLOGY AND GENOMIC MEDICINE Anion gap 11 7 - 15 mEq/L [facility] DEPARTMENT OF Comment: PATHOLOGY AND Starting from July GENOMIC MEDICINE , anion gap calculation no longer incorporates potassium. Please note the change. BUN 18 8 - 23 mg/dL [facility] DEPARTMENT OF PATHOLOGY AND GENOMIC MEDICINE Creatinine 0.9 0.7 - 1.2 mg/dL [facility] DEPARTMENT OF PATHOLOGY AND GENOMIC MEDICINE Glucose 119 (H) 65 - 99 mg/dL [facility] DEPARTMENT OF PATHOLOGY AND GENOMIC MEDICINE Calcium 9.4 8.8 - 10.2 mg/dL [facility] DEPARTMENT OF PATHOLOGY AND GENOMIC MEDICINE Protein 7.5 6.3 - 8.3 g/dL [facility] DEPARTMENT OF Comment: PATHOLOGY AND [place] GENOMIC MEDICINE 4.6-7.0 g/dL 1 week 4.4-7.6 g/dL 7 months-1year 5.1-7.3 g/dL 1-2 years5.6-7 .5 g/dL >3 years6.0-8 .0 g/dL 18-150 6.3-8.3 g/dL Albumin 4.1 3.5 - 5.0 g/dL [facility] DEPARTMENT OF PATHOLOGY AND GENOMIC MEDICINE A/G ratio 1.2 0.7 - 3.8 [facility] DEPARTMENT OF PATHOLOGY AND GENOMIC MEDICINE Alkaline phosphatase 44 40 - 129 U/L [facility] DEPARTMENT OF PATHOLOGY AND GENOMIC MEDICINE AST 19 10 - 50 U/L [facility] DEPARTMENT OF PATHOLOGY AND GENOMIC MEDICINE ALT 16 5 - 50 U/L [facility] DEPARTMENT OF PATHOLOGY AND GENOMIC MEDICINE Total bilirubin 0.4 0.0 - 1.2 mg/dL [facility] DEPARTMENT OF PATHOLOGY AND GENOMIC MEDICINE Specimen Plasma specimen Performing Organization Address [facility] Phone Number [facility] DEPARTMENT [address] [place] [address] PATHOLOGY AND GENOMIC MEDICINE * ECG 12 lead (06/20/2017 8:29 AM CDT) Only the most recent of 2 results within the time period is included. Ventricular rate 70 [facility] Atrial rate 70 [facility] MD interval 144 [facility] QRSD interval 82 [facility] QT interval 416 [facility] QTC interval 449 [facility] P axis 1 51 [facility] QRS axis 1 23 [facility] T wave axis 51 [facility] EKG impression Normal sinus rhythm-Normal [facility] ECG-In automated comparison with ECG of 14-JUN-2017 19:12,-No significant change was found- Performing Organization Address [facility] Phone Number [facility] MUSE [address] [place] [address] * ECG ED Preliminary Interpretation - NOT AN ORDER (06/20/2017 8:21 AM CDT) Narrative Performed At Pooja Tucker MD 06/20/20179:24 AM ECG ED Preliminary Interpretation - Not an Order Performed by: POOJA SILVER Authorized by: POOJA SILVER ECG reviewed by ED Physician in the absence of a horticultural specialty grower field: yes Interpretation: Interpretation: normal Rate: ECG rate:70 ECG rate assessment: normal Rhythm: Rhythm: sinus rhythm Ectopy: Ectopy: none QRS: QRS axis:Normal Conduction: Conduction: normal ST segments: ST segments:Normal T waves: T waves: normal * Thyroid stimulating hormone (06/16/2017 5:11 AM CDT) TSH 2.13 0.27 - 4.20 uIU/mL [facility] DEPARTMENT OF PATHOLOGY AND GENOMIC MEDICINE Specimen Plasma specimen Performing Organization Address [facility] Phone Number [facility] DEPARTMENT [address] [place] [address] PATHOLOGY AND GENOMIC MEDICINE * Echocardiogram complete w contrast and 3D if needed (06/15/2017 2:35 PM MECHANICAL SYSTEMS DESIGNER) AoV Area, Vmax 2.10 cm2 [facility] AoV Area, VTI 2.24 cm2 [facility] AoV Mean PG 5.68 mmHg [facility] AoV Peak PG 10.61 mmHg [facility] AoV Vmax 1.63 m/s [facility] AoV VTI 0.33 m [facility] IVS,d 0.95 0.6 - 1.2 cm [facility] LV,d 4.20 cm [facility] LV EF,A2C 67.21 % [facility] LV EF,A4C 57.30 % [facility] LV EF,BP 62.94 % [facility] [place],d A2C 8.47 cm [facility] [place],d A4C 8.33 cm [facility] [place],s A2C 6.92 cm [facility] [place],s A4C 7.04 cm [facility] LV,s 2.96 cm [facility] LV SV,A2C 75.65 % [facility] LV SV,A4C 65.46 % [facility] LV Vol,d A2C 112.56 mL [facility] LV Vol,d A4C 114.24 ml [facility] LV Vol,d BP 114.27 ml [facility] LV Vol,s A2C 36.91 mL [facility] LV Vol,s A4C 48.78 ml [facility] LV Vol,s BP 42.34 nl [facility] LVOT Diam,S 2.04 cm [facility] LVOT Vmax 1.05 m/s [facility] LVOT VTI 0.22 m [facility] LVPWD,d 1.13 cm [facility] TR Vpeak 2.62 mm/s [facility] MV E A ratio 1.28 mmHg [facility] TR pk grad 27.56 mmHg [facility] MR Vmax 5.47 m/s [facility] MR peak grad 119.54 mmHg [facility] E wave decelartion time 212.42 msec [facility] MV Peak A Raheem 0.94 m/s [facility] MV valve area p 1/2 3.21 cm2 [facility] method MV Peak E Raheem 1.20 m/s [facility] MV stenosis pressure 1/2 68.55 ms [facility] time AV LVOT peak gradient 4.41 mmHg [facility] LV SYS VOL 33.82 ml [facility] LV AMARAL VOL 78.67 ml [facility] LV SV Teich 2D 44.85 ml [facility] LVOT SI 36.18 ml/m2 [facility] AoV Cusp sep 1.64 [facility] AoV Vmn 1.14 [facility] IVS s 2D 1.35 [facility] LA Ao Ratio Mmode 1.20 [facility] LVOT Vmn 0.73 [facility] Pt Size 177.80 [facility] Pt Wt 83.91 [facility] PV AT 138.41 msec [facility] LVOT mean grad 2.30 mmHg [facility] LVPW s PLAX 1.41 cm [facility] MV Decel slope 5.63 m/s2 [facility] Velocity Ratio (V1/V2) 0.64 m/s [facility] EF 57.01 % [facility] E/A ratio 1.28 [facility] LVOT area 3.27 cm2 [facility] LA volume 60.0 cm3 [facility] LA Area d A4C 58 cm2 [facility] RA pressure 5.00 mmHg [facility] RVSP 32.56 mmHg [facility] LA diam s 4.20 cm [facility] Aortic Root 3.50 cm [facility] D E excurs 1.90 [facility] E f slope 0.07 [facility] E prime lat 0.14 [facility] E tere sept 0.06 [facility] PV acc T slope 4.90 [facility] Narrative Performed At [facility] The left ventricle chamber size is normal. There is borderline left ventricular Left Ventricular ejection fraction is 55 - 60%. Right ventricular size is normal. No pericardial effusion LA size is normal. No PFO by saline contrast study Performing Organization Address [facility] Center[facility] Phone Number [facility] [address] [place] [address] * Homocystine, plasma (06/15/2017 11:25 AM MECHANICAL SYSTEMS DESIGNER) Homocysteine 12.7 0.0 - 15.0 umol/L [facility] DEPARTMENT OF Comment: PATHOLOGY AND The risk for coronary vascular GENOMIC MEDICINE disease increases progressively with homocysteine concentration.A 3.4 times greater risk is associated with a homocysteine concentration of greater than 15.8 umol/L as compared to a concentration below 14.1 umol/L. Specimen Plasma specimen Performing Organization Address City/[facility]/[employer] Phone Number [facility] DEPARTMENT OF [address] [place] [address] PATHOLOGY AND GENOMIC MEDICINE * Vitamin B12 level (06/15/2017 11:25 AM MECHANICAL SYSTEMS DESIGNER) Vitamin B12 516 211 - 946 pg/mL [facility] DEPARTMENT OF Comment: PATHOLOGY AND Significant overlap exists GENOMIC MEDICINE between normal and deficiency states. However, most patients with deficiencies will have Serum B12 <200 pg/mL. Specimen Serum Performing Organization Address [facility] Phone Number [facility] [id number] [place] [address] [place] [address] PATHOLOGY AND GENOMIC MEDICINE * Lipid panel (06/15/2017 11:25 AM MECHANICAL SYSTEMS DESIGNER) Only the most recent of 2 results within the time period is included. Cholesterol 228 (H) <200 mg/dL [facility] DEPARTMENT OF PATHOLOGY AND GENOMIC MEDICINE Triglycerides 138 <150 mg/dL [facility] DEPARTMENT OF PATHOLOGY AND GENOMIC MEDICINE HDL cholesterol 55 >40 mg/dL [facility] DEPARTMENT OF PATHOLOGY AND GENOMIC MEDICINE LDL cholesterol 171 (H)Comment: Result <100 mg/dL [facility] obtained by direct LDL PATHOLOGY AND measurement GENOMIC MEDICINE Lipid panel SeeBelow [facility] DEPARTMENT OF interpretation Comment: PATHOLOGY AND Total Cholesterol GENOMIC MEDICINE (mg/dL) <200 Desirable 200-239Borderline -high >=240High Triglycerides (mg/dL) <150 Normal 150-199Borderline -high 200-499High >=500Very high HDL Cholesterol (mg/dL) <40Low (male) <40Low (female) LDL Cholesterol (mg/dL) <100 Optimal 100-129Near or above optimal 130-159Borderline -high 160-189High >=190Very high Risk Catergories that modify LDL goals. Risk Catergories LDL goal (mg/dL) CHD and CHD risk equivalent<100 (10-year risk >20%) Multiple (2+) risk factors <130 (10-year risk=<20%) 0-1 risk factors <160 (<10-year risk) Defining levels of lipids in metabolic syndrome Triglycerides >=150 mg/dL HDL Cholesterol Men <40 mg/dL Women <40 mg/dL Non-HDL cholesterol is a second target for therapy in persons with high triglycerides (>=200 mg/dL) Specimen Plasma specimen Performing Organization Address [facility] Centercode Phone Number [facility] [place] [id number] [place] [address] [place] [address] PATHOLOGY AND GENOMIC MEDICINE * Serum electrophoresis (06/15/2017 10:25 AM MECHANICAL SYSTEMS DESIGNER) Protein 6.4 6.3 - 8.3 g/dL [facility] DEPARTMENT OF Comment: PATHOLOGY AND GENOMIC MEDICINE 4.6-7.0 g/dL 1 week 4.4-7.6 g/dL 7 months-1year 5.1-7.3 g/dL 1-2 years5.6-7 .5 g/dL >3 years6.0-8 .0 g/dL 18-150 6.3-8.3 g/dL SPE albumin 4.40 4.00 - 5.30 g/dL [facility] DEPARTMENT OF PATHOLOGY AND GENOMIC MEDICINE SPE alpha 1 0.13 0.10 - 0.25 g/dL [facility] DEPARTMENT OF PATHOLOGY AND GENOMIC MEDICINE SPE alpha 2 0.70 0.58 - 0.84 g/dL [facility] DEPARTMENT OF PATHOLOGY AND GENOMIC MEDICINE SPE beta 0.77 0.50 - 1.10 g/dL [facility] DEPARTMENT OF PATHOLOGY AND GENOMIC MEDICINE SPE gamma 0.40 (L) 0.60 - 1.30 g/dL [facility] DEPARTMENT OF PATHOLOGY AND GENOMIC MEDICINE SPE extended See CommentComment: Gamma [facility] DEPARTMENT OF interpretation globulins are slightly PATHOLOGY AND decreased. GENOMIC MEDICINE SPE interpretation See CommentComment: Jose [facility] DEPARTMENT OF [place], PhD; Haroldo Dow, PATHOLOGY AND PhD; Joaquin Maxwell MD, PhD [facility] Specimen Serum Performing Organization Address City/State/Zipcode Phone Number [facility] DEPARTMENT OF [address] [place] [address] PATHOLOGY AND GENOMIC MEDICINE * MRI Brain Wo Contrast (06/14/2017 10:33 PM MECHANICAL SYSTEMS DESIGNER) Narrative Performed At EXAMINATION: MRI BRAIN WO CONTRAST [facility]IANT CLINICAL HISTORY: STROKE COMPARISON:CT head same date [...] by YUKO Barrera at 06/14/2017 11:00 PM. [id number] Procedure Note Interface, Radiology Results Incoming - 06/14/2017 11:06 PM MECHANICAL SYSTEMS DESIGNER EXAMINATION: MRI BRAIN WO CONTRAST CLINICAL HISTORY: [...] by YUKO Barrera at 06/14/2017 11:00 PM. [facility]-[id number] Performing Organization Address City/State/Zipcode Phone Number [facility] [address] [place] [address] * Urinalysis screen and microscopy, with reflex to culture (06/14/2017 8:00 PM MECHANICAL SYSTEMS DESIGNER) Specimen site Clean catch [facility] DEPARTMENT OF PATHOLOGY AND GENOMIC MEDICINE Color, UA Straw [facility] DEPARTMENT OF PATHOLOGY AND GENOMIC MEDICINE Appearance, UA Clear [facility] DEPARTMENT OF PATHOLOGY AND GENOMIC MEDICINE Specific gravity, UA 1.055 (H) 1.001 - 1.035 [facility] DEPARTMENT OF PATHOLOGY AND GENOMIC MEDICINE pH, UA 5.0 5.0 - 8.5 [facility] DEPARTMENT OF PATHOLOGY AND GENOMIC MEDICINE Protein, UA Negative Negative [facility] DEPARTMENT OF PATHOLOGY AND GENOMIC MEDICINE Glucose, UA 1+ (A) Negative [facility] DEPARTMENT OF PATHOLOGY AND GENOMIC MEDICINE Ketones, UA Trace (A) Negative [facility] DEPARTMENT OF PATHOLOGY AND GENOMIC MEDICINE Bilirubin, UA Negative Negative [facility] DEPARTMENT OF PATHOLOGY AND GENOMIC MEDICINE Blood, UA Negative Negative [facility] DEPARTMENT OF PATHOLOGY AND GENOMIC MEDICINE Nitrite, UA Negative Negative [facility] DEPARTMENT OF PATHOLOGY AND GENOMIC MEDICINE Urobilinogen, UA Negative <2.0 [facility] DEPARTMENT OF PATHOLOGY AND GENOMIC MEDICINE Leukocyte esterase, UA Negative Negative [facility] DEPARTMENT OF PATHOLOGY AND GENOMIC MEDICINE Epithelial cells, UA Few /HPF [facility] DEPARTMENT OF PATHOLOGY AND GENOMIC MEDICINE WBC, UA 0-5 0 - 1 /HPF [facility] DEPARTMENT OF PATHOLOGY AND GENOMIC MEDICINE RBC, UA 0-5 0 - 1 /HPF [facility] DEPARTMENT OF PATHOLOGY AND GENOMIC MEDICINE Bacteria, UA None seen None seen [facility] DEPARTMENT OF PATHOLOGY AND GENOMIC MEDICINE Yeast, UA None seen [facility] DEPARTMENT OF PATHOLOGY AND GENOMIC MEDICINE Yeast with pseudohyphae, None seen [facility] DEPARTMENT OF UA PATHOLOGY AND GENOMIC MEDICINE Specimen Urine Performing Organization Address [facility] Phone Number [address] [place] [address] PATHOLOGY AND [facility] MEDICINE * Urine culture (06/14/2017 8:00 PM MECHANICAL SYSTEMS DESIGNER) Urine culture SEE COMMENTComment: [facility] DEPARTMENT OF Bacteriuria screen negative. PATHOLOGY AND GENOMIC MEDICINE Specimen Urine Performing Organization Address [facility] Number [address] [place] [address] PATHOLOGY AND GENOMIC MEDICINE * POC glucose (06/14/2017 7:23 PM MECHANICAL SYSTEMS DESIGNER) POC glucose 100 (H) 65 - 99 mg/dL [facility] DEPARTMENT OF Comment: PATHOLOGY AND Meter ID: [id number] GENOMIC MEDICINE Program Architect: Radha Howell Performing Organization Address [facility] Phone Number [address] [place] [address] PATHOLOGY AND [facility] MEDICINE * CTA Neck W Wo Contrast (06/14/2017 7:20 PM MECHANICAL SYSTEMS DESIGNER) Narrative Performed At EXAMINATION:CT ANGIOGRAM NECK W WO CONTRAST [facility] CLINICAL HISTORY:STROKE COMPARISON:None. TECHNIQUE: Neck CTA with [...] common carotid artery with approximately 25% narrowing. [facility]-[id number] Procedure Note Hm Interface, Radiology Results Incoming - 06/14/2017 7:38 PM MECHANICAL SYSTEMS DESIGNER EXAMINATION: CT ANGIOGRAM NECK W WO CONTRAST [...] common carotid artery with approximately 25% narrowing. [id number] Performing Organization Address City/State/Zipcode Phone Number [facility] [address] [place] [address] * CTA Head W Wo Contrast (06/14/2017 7:20 PM MECHANICAL SYSTEMS DESIGNER) Narrative Performed At EXAMINATION:CT ANGIOGRAM HEAD W WO CONTRAST [facility] CLINICAL HISTORY:STROKE COMPARISON:Head CT on 06/14/2017. TECHNIQUE: [...] along the basilar artery, cerebellar arteries, and booster plant operator. 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 There is a left posterior communicating artery is unremarkable. There is no evidence of cerebral aneurysm in the proximal [place]. There is no evidence of perfusion-weighted defect on CTA source images. IMPRESSION: 1. 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 2. Focal vascular calcification with at most mild stenosis of proximal right intradural vertebral artery. 3. Normal variant [place] anatomy as described. 4. No evidence of perfusion-weighted defect on CTA source images. [facility]-[id number] Procedure Note [facility], Radiology Results Incoming - 06/14/2017 7:49 PM MECHANICAL SYSTEMS DESIGNER EXAMINATION: CT ANGIOGRAM HEAD W WO CONTRAST [...] along the basilar artery, cerebellar arteries, and booster plant operator. 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 There is a left posterior communicating artery is unremarkable. There is no evidence of cerebral aneurysm in the proximal [place]. There is no evidence of perfusion-weighted defect on CTA source images. IMPRESSION: 1. 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 2. Focal vascular calcification with at most mild stenosis of proximal right intradural vertebral artery. 3. Normal variant [place] anatomy as described. 4. No evidence of perfusion-weighted defect on CTA source images. [facility]-[id number] Performing Organization Address City/State/Zipcode Phone Number [facility] [address] [place] [address] * CT Stroke Brain Wo Contrast (06/14/2017 7:03 PM MECHANICAL SYSTEMS DESIGNER) Narrative Performed At EXAMINATION: CT STROKE BRAIN WO CONTRAST [facility] CLINICAL HISTORY: STROKE COMPARISON:None. TECHNIQUE: Noncontrast enhanced [...] acute intracranial abnormality. Findings discussed with CLEMENCIA MORORW at 06/14/2017 7:09 PM, with acknowledgement of understanding. [facility]-[id number] Procedure Note Interface, Radiology Results Incoming - 06/14/2017 7:15 PM MECHANICAL SYSTEMS DESIGNER EXAMINATION: CT STROKE BRAIN WO CONTRAST CLINICAL [...] 06/14/2017 7:09 PM, with acknowledgement of understanding. [facility]-[id number] Performing Organization Address [facility] Phone Number [facility] [address] [place] [address] * Partial thromboplastin time, activated (06/14/2017 6:57 PM MECHANICAL SYSTEMS DESIGNER) PTT 23.0 23.0 - 36.0 sec [facility] DEPARTMENT OF Comment: PATHOLOGY AND PTT therapeutic range for [facility] MEDICINE unfractionated heparin is 61.0-112.0 seconds which corresponds to Anti-Xa 0.3-0.7 U/ml. Specimen Blood Performing Organization Address [facility] Phone Number [place] [address] [place] [address] PATHOLOGY AND GENOMIC MEDICINE * Prothrombin time with INR (06/14/2017 6:57 PM MECHANICAL SYSTEMS DESIGNER) Prothrombin time 12.2 12.0 - 15.0 sec [facility] DEPARTMENT OF PATHOLOGY AND GENOMIC MEDICINE INR 0.9 [facility] DEPARTMENT OF Comment: PATHOLOGY AND The International Normalized GENOMIC MEDICINE Ratio (INR) is a therapeutic monitoring tool for patients who are stable on oral anticoagulant therapy. An INR of 2.0-3.0 is suggested for deep vein thrombosis/pulmonary embolism. Specimen Blood Performing Organization Address [facility]/State/Zipcode Phone Number [facility] [address] [place] [address] PATHOLOGY AND GENOMIC MEDICINE * CRITICAL CARE (06/14/2017 6:43 PM MECHANICAL SYSTEMS DESIGNER) Narrative Performed At Clemencia Morrow MD 06/14/20177:16 PM Critical Care [...] condition and review of old charts after 05/01/2017 Insurance Payer Benefit Subscriber ID Type Phone Address Plan / Group MEDICARE MEDICARE xxxxxxxxxx Medicare [place], [place] PART A AND B [facility] xxxxxxxxx [facility] INDEMNITY (Home) [place] [address] Advance Directives Patient has advance care planning documents, and code status on file. For more i nformation, please contact: Enrique Vo [address] [place] [address] Date Inactivated Comments Code Status Date Activated 06/16/2017 7:01 PM Full Code 06/14/2017 8:46 PM Code Status decision reached by: Patient
[2018-05-02 19:00] VITALS: BP 138/88
--- NOTE | 2018-05-02 19:48 | Operative Report ---
DATE OF PROCEDURE: May 02, 2018 REFERRING PHYSICIAN: Juanpablo Thomas MD PROCEDURES PERFORMED 1. Esophagogastroduodenoscopy with biopsies. 2. Colonoscopy. INDICATIONS FOR ESOPHAGOGASTRODUODENOSCOPY: Acid reflux. INDICATIONS FOR COLONOSCOPY: Surveillance colonoscopy, personal history of colon polyps, family history of colon cancer. MEDICATION: Patient was done under MAC. Please see anesthesiologist's note. PROCEDURE: With patient in left lateral decubitus position, a flexible fiberoptic Olympus gastroscope was introduced into the esophagus under direct visualization without any difficulty. There was some patchy erythema noted in distal esophagus. A minute tongue of velvety red mucosa was noted to extend proximally from the GE junction that was biopsied to rule out Morales's. The scope was then advanced with ease into the stomach traversing a small sliding hiatal hernia. Mucosa overlying the antrum and the body revealed some diffuse erythema and moderate edema and biopsies were obtained and sent to stain for H. pylori. The pylorus was of normal contour and shape, was intubated with ease and the scope was advanced all the way to the 2nd portion of the duodenum. The scope was then withdrawn slowly. Mucosa overlying the proximal 2nd portion and the duodenal bulb appeared to be within normal limits. The scope was then withdrawn back into the stomach and retroflexed, and mucosa overlying the fundus and the cardia appeared to be within normal limits. The scope was then straightened out and was subsequently withdrawn. Patient tolerated the procedure well. IMPRESSION 1. Rule out Morales's esophagus. 2. Small sliding hiatal hernia. 3. Gastritis, biopsied. Biopsies sent to stain for Helicobacter pylori. PLAN: Follow up histology. Increase Dexilant to 60 mg 1 p.o. a.c. b.i.d. Patient was then turned around and after adequate lubrication of the anal canal, a flexible fiberoptic Olympus colonoscope was inserted into the rectum with ease and advanced all the way to the cecum. It was then withdrawn slowly. Mucosa overlying the cecum, ascending colon, transverse, descending, sigmoid appeared to be grossly within normal limits other than for diverticular disease. The rectum grossly appeared to be within normal limits. The scope was then retroflexed into the distal rectum and moderate-size internal hemorrhoids were noted, none of which was actively bleeding. The scope was then straightened out and was subsequently withdrawn. Patient tolerated the procedure well. IMPRESSION 1. Diverticulosis. 2. Internal hemorrhoids, none actively bleeding. PLAN: Initiate high-fiber, low-fat diet. Initiate high-fiber supplement. Patient might benefit from a followup colonoscopy in 3 to 5 years. Job#: [id number] SUNNI cc:JUANPABLO THOMAS MD
== END | disposition home or self-care (01) ==
LOC: OR 15:11
PROVIDERS: ATTEND Internal Medicine Gastroenterology
DX: K21.9 Gastro-esophageal reflux disease without esophagitis (principal); K29.00 Acute gastritis without bleeding; K44.9 Diaphragmatic hernia without obstruction or gangrene; K20.9 Esophagitis, unspecified; K57.30 Diverticulosis of large intestine without perforation or abscess without bleeding; K64.8 Other hemorrhoids; E11.9 Type 2 diabetes mellitus without complications; I10 Essential (primary) hypertension; I69.354 Hemiplegia and hemiparesis following cerebral infarction affecting left non-dominant side; Z88.1 Allergy status to other antibiotic agents; Z88.8 Allergy status to other drugs, medicaments and biological substances; Z01.810 Encounter for preprocedural cardiovascular examination; Z01.812 Encounter for preprocedural laboratory examination; Z79.82 Long term (current) use of aspirin; Z68.26 Body mass index [BMI] 26.0-26.9, adult; Z80.0 Family history of malignant neoplasm of digestive organs
CPT/HCPCS: 36415; 43239; 45378; 85025; 88305; 88312; 93005; J1610; J1980; J2250

== ENCOUNTER 2024-05-30 06:11 | Emergency (ER) | payer MEDICARE, OTHER ==
[~2024-05-30] VITALS: Ht 177.8 cm; Wt 97.1 kg
[~2024-05-30 06:11] MED LIST changes: +ELIQUIS5 MG PO; -FENTANYL CITRATE/PF 100MCG/2 ML INJ ONE; -GLUCAGON FOR INJ 1 MG VIAL ONE; +HYDROCODON-ACE1 EA12 PO; -HYOSCYAMINE SULFATE 0.5 MG/ML INJ ONE; +METOPROLOL TART50 MG PO; -MIDAZOLAM HCL 2 MG/2 ML VIAL ONE; +PAMELOR10 MG PO; -PROPOFOL IV EMULSION 10 MG/ML 50 ML VIAL ONE
[2024-05-30 06:12] VITALS: TEMP 98.4; O2SAT 100
[2024-05-30 06:41] LABS: BASOPHILS # (AUTO) 0.1 (0.0-0.1); EOSINOPHILS # (AUTO) 0.4 (0.0-0.4); HEMOGLOBIN 16.6 g/dL (14.0-18.0); LYMPHOCYTES # (AUTO) 1.7 (1.0-3.2); LYMPHOCYTES % 18.6 % (18.0-39.1); MEAN CORPUSCULAR HEMOGLOBIN 29.5 pg (28-32); MEAN CORPUSCULAR HGB CONC 33.2 g/dL (31-35); MEAN CORPUSCULAR VOLUME 88.8 fL (81-99); MONOCYTES # (AUTO) 1.2 (0.2-0.8); MONOCYTES % 13.2 % (4.4-11.3); NEUTROPHILS # (AUTO) 5.7 (2.1-6.9); NEUTROPHILS % 62.4 % (38.7-80.0); PLATELET COUNT 264 x10e3/uL (140-360); RED BLOOD COUNT 5.63 x10e6/uL (4.3-5.7); RED CELL DISTRIBUTION WIDTH 14.9 % (11.7-14.4); WHITE BLOOD COUNT 9.04 x10e3/uL (4.8-10.8)
[2024-05-30 06:54] LABS: INR 1.05; PROTHROMBIN TIME 14.3 seconds (11.9-14.5)
[2024-05-30 07:02] LABS: ALBUMIN 4.1 g/dL (3.5-5.0); ALBUMIN/GLOBULIN RATIO 1.2 (0.8-2.0); ANION GAP 16.9 mmol/L (8-16); CALCIUM 9.7 mg/dL (8.4-10.2); CREATININE, SERUM 1.6 mg/dL (0.72-1.25); POTASSIUM 3.9 mmol/L (3.5-5.1); TOTAL PROTEIN 7.4 g/dL (6.5-8.1)
[2024-05-30 07:09] LABS: TROPONIN I 0.007 ng/mL (0-0.300)
[2024-05-30] MEDS: SODIUM CHLORIDE 0.9% 1000ML 1,000 ML IV STA (07:38)
[2024-05-30 09:17] VITALS: PULSE 84; RESP 17
== END 2024-05-30 10:10 | disposition home or self-care (01) ==
LOC: ER 06:25
DX: S56.811A Strain of other muscles, fascia and tendons at forearm level, right arm, initial encounter (principal); I65.21 Occlusion and stenosis of right carotid artery; I10 Essential (primary) hypertension; I48.91 Unspecified atrial fibrillation; E03.9 Hypothyroidism, unspecified; E78.5 Hyperlipidemia, unspecified; K21.9 Gastro-esophageal reflux disease without esophagitis; G47.00 Insomnia, unspecified; M54.9 Dorsalgia, unspecified; G89.29 Other chronic pain; Z85.828 Personal history of other malignant neoplasm of skin; Z86.73 Personal history of transient ischemic attack (TIA), and cerebral infarction without residual deficits
CPT/HCPCS: 36415; 70450; 70496; 70498; 71045; 80053; 82550; 83735; 84484; 85025; 85610; 85730; 93005; 99284; J7030